=== PATIENT | male | born 1950 ===

== ENCOUNTER 2018-12-05 13:51 | Inpatient (IN) | payer MEDICARE, BC ==
[~2018-12-05] VITALS: Ht 177.8 cm; Wt 70.3 kg
[~2018-12-05 13:51] MED LIST: LANS30EC PO; TUMS200 MG
[2018-12-05 14:15] LABS: Calcium, Ionized (POC) 1.09 mmol/L (1.10-1.46); Chloride (POC) 103 mmol/L (98-108); Creatinine (POC) 0.9 mg/dL (0.8-1.3); Glucose (ISTAT POC) 141 mg/dL (70-99); Hemoglobin (POC) 13.6 g/dL (13.5-17.5); Sodium (POC) 140 mmol/L (135-148); Total CO2 (POC) 23 mmol/L (21-32)
[2018-12-05 14:44] LABS: Hematocrit 41.8 % (37.0-53.0); Hemoglobin 14.3 g/dL (13.5-17.5); Mean Corpuscular HGB 29.8 pg (26.0-34.0); Mean Corpuscular HGB Conc 34.2 g/dL (31.5-36.5); Mean Corpuscular Volume 87 fL (80-100); Mean Platelet Volume 8.8 fL (9.1-12.4); Platelet Count 339 K/mm3 (150-400); RDW Standard Deviation 38.4 fL (35.1-46.3); White Blood Cell Count 9.01 K/mm3 (4.00-11.30)
[2018-12-05 14:57] LABS: International Normalized Ratio 1.05; Prothrombin Time Results 11.1 Sec (9.7-11.5)
[2018-12-05 15:22] LABS: Anion Gap 12 mmol/L (6-16); Blood Urea Nitrogen 18 mg/dL (8-24); Bun/Creatinine Ratio 19.9 (12.0-20.0); CHOL/HDL RATIO 3.8; CO2, Blood 23 mmol/L (21-32); CPK Creatine Kinase 109 U/L (39-308); Calcium, Blood 9.1 mg/dL (8.5-10.1); Chloride, Blood 105 mmol/L (98-108); Cholesterol 208 mg/dL (50-200); Creatine Kinase MB 2.8 ng/mL (0.0-3.6); Creatine Kinase MB Index 2.6 (0.0-4.0); Glomerular Filtration Rate >60 (60-); Glucose, Blood 134 mg/dL (70-99); HDL Cholesterol 55 mg/dL (>39); LDL/HDL RATIO 2.1; Low Density Lipoprotein Chol 117 mg/dL (0-110); Magnesium, Blood 2.2 mg/dL (1.6-2.4); Sodium, Blood 140 mmol/L (136-145); Triglycerides 180 mg/dL (30-160); Troponin I <0.015 ng/mL (0.000-0.040); Very Low Density Lipoprot Chol 36 mg/dL (6-32)
[2018-12-05] MEDS ORDERED: Excedrin Extra1 EACH PO (16:22)
[2018-12-05] MEDS ORDERED: Hair, Skin & N1 EACH PO (16:23)
[2018-12-05] MEDS ORDERED: ASCO500 PO (16:24)
[2018-12-05] MEDS ORDERED: ERGO400 PO (16:24)
--- NOTE | 2018-12-05 16:56 | NUR ---
echocardiogram complete
--- NOTE | 2018-12-05 19:04 | NUR ---
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 BIOX ON INDEX FINGER. AGRASTAT 12 ML/HR. NS 75 ML/HR. DENIED CHEST PAIN. AT BEDSIDE. DAUGHTER, DANETTE AT BEDSIDE. DR. NEW IN. CONSENT TO TRANSFER TO [facility] SIGNED. [facility] CALLED WITH BED ([id number]). REPORT CALLED TO [facility] AT [phone]. [facility] COMING FROM [place] AT 1830. EKG COMPLETED. COREG GIVEN WITH DINNER. PATIENT C/O OF TIGHTNESS OF TR BAND. REMOVED 1 CC AIR. OOZED. PLACED 1 CC BACK. 2X2 TO WICK BLOOD. [employer] CREW ARRIVED. PATIENT TAKEN OUT AT 1857. CALLED [facility] TO NOTIFY OF DEPARTURE. [facility]. ADVISED SHOULD COME THROUGH ER. AND DAUGHTER NOTIFIED.
== END 2018-12-05 18:57 | disposition short-term general hospital (02) | DRG 249 ==
LOC: ER 13:51 → ICUW 14:15
PROVIDERS: Emergency Medicine; ADMIT Emergency Medicine
PROC: 02703EZ Dilation of Coronary Artery, One Artery with Two Intraluminal Devices, Percutaneous Approach (ICD-10-PCS; principal; 2018-12-05)
PROC: B2161ZZ Fluoroscopy of Right and Left Heart using Low Osmolar Contrast (ICD-10-PCS; 2018-12-05)
DX: I21.11 ST elevation (STEMI) myocardial infarction involving right coronary artery (principal); K21.9 Gastro-esophageal reflux disease without esophagitis; E87.6 Hypokalemia; I25.10 Atherosclerotic heart disease of native coronary artery without angina pectoris; M17.12 Unilateral primary osteoarthritis, left knee; M17.11 Unilateral primary osteoarthritis, right knee
CPT/HCPCS: 36415; 71045; 80047; 80048; 80061; 82550; 82553; 83735; 84484; 85014; 85027; 85347; 85610; 85730; 86850; 86900; 86901; 92941; 93005; 93010; 93306; 93454; 96374; 99152; 99153; 99285-25; C1725; C1769; C1876; C1887; C1894; J0461; J1644; J2250; J3010; J3246; J3480; J7030; Q9967

== ENCOUNTER → 2021-09-13 | Outpatient (CLI) | payer MEDICARE, BC ==
[~2021-09-13] MED LIST changes: +ASCO500 PO; +ERGO400 PO; +Excedrin Extra1 EACH PO; +Hair, Skin & N1 EACH PO
== END | disposition home or self-care (01) ==
LOC: LAB 10:55 → LAB SHORT 10:55
DX: H61.001 Unspecified perichondritis of right external ear (principal)
CPT/HCPCS: 88305

== ENCOUNTER → 2023-04-26 | Outpatient (CLI) | payer MEDICARE, BC ==
[2023-04-27 08:19] LABS: Stool Occult Bld Immuno 1 Negative (NEGATIVE)
== END ==
LOC: LAB SHORT 13:43 → LAB 13:43
PROVIDERS: Family Medicine
DX: Z12.11 Encounter for screening for malignant neoplasm of colon (principal)
CPT/HCPCS: G0328

== ENCOUNTER → 2023-09-17 | Outpatient (CLI) | payer MEDICARE, BC | END | disposition home or self-care (01) | LOC: LAB 11:38 → LAB SHORT 11:38 | DX: L57.0 Actinic keratosis (principal); D48.5 Neoplasm of uncertain behavior of skin | CPT/HCPCS: 88305 ==

== ENCOUNTER → 2024-05-12 | Outpatient (CLI) | payer MEDICARE, BC ==
[2024-05-21 12:48] LABS: Stool Occult Bld Immuno 1 Negative (NEGATIVE)
== END | disposition home or self-care (01) ==
LOC: LAB SHORT 16:46 → LAB 16:46
PROVIDERS: Family Medicine
DX: Z12.11 Encounter for screening for malignant neoplasm of colon (principal)
CPT/HCPCS: G0328

== ENCOUNTER 2025-07-11 11:54 | Emergency (ER) | payer MEDICARE, BC ==
[~2025-07-11] VITALS: Ht 177.8 cm; Wt 70.3 kg
[2025-07-11 12:11] LABS: BASOPHILS ABSOLUTE AUTO 0.01 K/mm3 (0.00-0.23); BASOPHILS PERCENT AUTO 0 % (0-2); EOSINOPHILS ABSOLUTE AUTO 0.10 K/mm3 (0.00-0.68); EOSINOPHILS PERCENT AUTO 2 % (0-6); Hematocrit 40.3 % (37.0-53.0); Hemoglobin 13.6 g/dL (13.5-17.5); IMMATURE GRAN ABSOLUTE AUTO 0.02 K/mm3 (0.00-0.10); IMMATURE GRAN PERCENT AUTO 0 % (0-1); LYMPHOCYTES ABSOLUTE AUTO 1.43 K/mm3 (0.84-5.20); LYMPHOCYTES PERCENT AUTO 24 % (21-46); MONOCYTES ABSOLUTE AUTO 0.59 K/mm3 (0.16-1.47); MONOCYTES PERCENT AUTO 10 % (4-13); Mean Corpuscular HGB Conc 33.7 g/dL (31.5-36.5); Mean Corpuscular Volume 90 fL (80-100); NEUTROPHILS ABSOLUTE AUTO 3.71 K/mm3 (1.96-9.15); NEUTROPHILS PERCENT AUTO 63 % (41-73); NRBC ABSOLUTE 0.00 K/mm3 (0.00-0.02); NRBC Auto 0.0 /100 WBC (0.0-0.2); Platelet Count 208 K/mm3 (150-400); RDW Coefficient Variation 12.5 % (11.7-14.2); RDW Standard Deviation 41.0 fL (35.1-46.3)
[2025-07-11] MEDS ORDERED: EZETIMIBE10 M6 PO (12:11)
[2025-07-11] MEDS ORDERED: METOPROLOL SUCC25 MG PO (12:11)
[2025-07-11] MEDS ORDERED: [UNRECOGNIZED DRUG - OTHER] PO (12:11)
[2025-07-11] MEDS ORDERED: TADALAFIL5 M1 PO (12:12)
[2025-07-11] MEDS ORDERED: ASPI81CH PO (12:14)
[2025-07-11] MEDS ORDERED: FERROUS GLUCON324 M7 PO (12:14)
[2025-07-11] MEDS ORDERED: NITR.4SL SL (12:15)
[2025-07-11] MEDS ORDERED: MOME.1TO (12:15)
[2025-07-11 12:38] LABS: Alanine Aminotransfer (ALT/SGP 23.0 U/L (12-78); Albumin, Blood 3.8 g/dL (3.4-5.0); Albumin/Globulin Ratio 1.4 (0.8-1.8); Anion Gap 8.0 mmol/L (3-11); Aspartate Aminotrans (AST/SGOT 17.0 U/L (12-37); Bilirubin, Total 0.6 mg/dL (0.1-1.0); Blood Urea Nitrogen 15.0 mg/dL (8-24); CO2, Blood 29.0 mmol/L (21-32); Calcium, Blood 8.9 mg/dL (8.5-10.1); Chloride, Blood 105.0 mmol/L (98-108); Creatinine, Blood 0.97 mg/dL (0.60-1.20); Globulin, Blood 2.8 g/dL (2.2-4.0); Glucose, Blood 111.0 mg/dL (70-99); Potassium, Blood 4.1 mmol/L (3.5-5.5); Sodium, Blood 138.0 mmol/L (136-145); Total Protein, Blood 6.6 g/dL (6.4-8.2)
[2025-07-11 16:05] VITALS: BP 114/74
== END 2025-07-11 16:09 | disposition home or self-care (01) ==
LOC: ER 11:54
PROVIDERS: Emergency Medicine
DX: R07.89 Other chest pain (principal); K21.9 Gastro-esophageal reflux disease without esophagitis; Z79.899 Other long term (current) drug therapy
CPT/HCPCS: 71046; 80053; 83690; 84484; 85025; 93005; 93010; 99285-25; A9270

== ENCOUNTER 2025-07-19 11:35 | Emergency (ER) | payer MEDICARE, BC ==
[~2025-07-19] VITALS: Ht 177.8 cm; Wt 70.3 kg
[~2025-07-19 11:35] MED LIST changes: +ASPI81CH PO; +Calcium Carbon500 MG PO; +EZETIMIBE10 M6 PO; +FERROUS GLUCON324 M7 PO; +METOPROLOL SUCC25 MG PO; +MOME.1TO TOP; +NITR.4SL SL; +TADALAFIL5 M1 PO; -TUMS200 MG; +[UNRECOGNIZED DRUG - OTHER] PO
[2025-07-19 12:12] LABS: BASOPHILS ABSOLUTE AUTO 0.04 K/mm3 (0.00-0.23); BASOPHILS PERCENT AUTO 1 % (0-2); EOSINOPHILS ABSOLUTE AUTO 0.14 K/mm3 (0.00-0.68); EOSINOPHILS PERCENT AUTO 2 % (0-6); Hematocrit 40.1 % (37.0-53.0); Hemoglobin 13.8 g/dL (13.5-17.5); IMMATURE GRAN ABSOLUTE AUTO 0.01 K/mm3 (0.00-0.10); IMMATURE GRAN PERCENT AUTO 0 % (0-1); LYMPHOCYTES ABSOLUTE AUTO 1.48 K/mm3 (0.84-5.20); LYMPHOCYTES PERCENT AUTO 23 % (21-46); MONOCYTES ABSOLUTE AUTO 0.62 K/mm3 (0.16-1.47); MONOCYTES PERCENT AUTO 10 % (4-13); Mean Corpuscular HGB Conc 34.4 g/dL (31.5-36.5); Mean Corpuscular Volume 87 fL (80-100); NEUTROPHILS ABSOLUTE AUTO 4.17 K/mm3 (1.96-9.15); NEUTROPHILS PERCENT AUTO 65 % (41-73); NRBC ABSOLUTE 0.00 K/mm3 (0.00-0.02); NRBC Auto 0.0 /100 WBC (0.0-0.2); Platelet Count 210 K/mm3 (150-400); RDW Coefficient Variation 12.3 % (11.7-14.2); RDW Standard Deviation 39.1 fL (35.1-46.3)
[2025-07-19 12:38] LABS: Alanine Aminotransfer (ALT/SGP 21.0 U/L (12-78); Albumin, Blood 4.0 g/dL (3.4-5.0); Albumin/Globulin Ratio 1.5 (0.8-1.8); Anion Gap 5.0 mmol/L (3-11); Aspartate Aminotrans (AST/SGOT 15.0 U/L (12-37); Bilirubin, Total 0.5 mg/dL (0.1-1.0); Blood Urea Nitrogen 19.0 mg/dL (8-24); CO2, Blood 30.0 mmol/L (21-32); Calcium, Blood 9.0 mg/dL (8.5-10.1); Chloride, Blood 107.0 mmol/L (98-108); Creatinine, Blood 0.91 mg/dL (0.60-1.20); Globulin, Blood 2.7 g/dL (2.2-4.0); Glucose, Blood 97.0 mg/dL (70-99); Potassium, Blood 4.2 mmol/L (3.5-5.5); Sodium, Blood 138.0 mmol/L (136-145); Total Protein, Blood 6.7 g/dL (6.4-8.2)
[2025-07-19 13:21] VITALS: BP 119/84
[2025-07-20] MEDS ORDERED: PLAVIX75 MG PO ×2 (18:07)
[2025-07-20] MEDS ORDERED: FINA5 PO ×2 (18:09)
== END 2025-07-19 13:18 | disposition home or self-care (01) ==
LOC: ER 11:35
PROVIDERS: Student in an Organized Health Care Education/Training Program
DX: M26.622 Arthralgia of left temporomandibular joint (principal); K21.9 Gastro-esophageal reflux disease without esophagitis; Z87.891 Personal history of nicotine dependence; Z88.0 Allergy status to penicillin; Z79.82 Long term (current) use of aspirin; Z79.899 Other long term (current) drug therapy
CPT/HCPCS: 71046; 80053; 84484; 85025; 93005; 93010; 99284-25

== ENCOUNTER 2025-07-20 11:14 | Observation (INO) | payer MEDICARE, BC ==
[~2025-07-20] VITALS: Ht 177.8 cm; Wt 73.2 kg
[2025-07-20 11:56] LABS: BASOPHILS ABSOLUTE AUTO 0.04 K/mm3 (0.00-0.23); BASOPHILS PERCENT AUTO 1 % (0-2); EOSINOPHILS ABSOLUTE AUTO 0.14 K/mm3 (0.00-0.68); EOSINOPHILS PERCENT AUTO 2 % (0-6); Hematocrit 42.5 % (37.0-53.0); Hemoglobin 14.4 g/dL (13.5-17.5); IMMATURE GRAN ABSOLUTE AUTO 0.01 K/mm3 (0.00-0.10); IMMATURE GRAN PERCENT AUTO 0 % (0-1); LYMPHOCYTES ABSOLUTE AUTO 1.21 K/mm3 (0.84-5.20); LYMPHOCYTES PERCENT AUTO 21 % (21-46); MONOCYTES ABSOLUTE AUTO 0.69 K/mm3 (0.16-1.47); MONOCYTES PERCENT AUTO 12 % (4-13); Mean Corpuscular HGB Conc 33.9 g/dL (31.5-36.5); Mean Corpuscular Volume 89 fL (80-100); NEUTROPHILS ABSOLUTE AUTO 3.64 K/mm3 (1.96-9.15); NEUTROPHILS PERCENT AUTO 64 % (41-73); NRBC ABSOLUTE 0.00 K/mm3 (0.00-0.02); NRBC Auto 0.0 /100 WBC (0.0-0.2); Platelet Count 221 K/mm3 (150-400); RDW Coefficient Variation 12.3 % (11.7-14.2); RDW Standard Deviation 39.8 fL (35.1-46.3)
[2025-07-20 12:11] LABS: Alanine Aminotransfer (ALT/SGP 23.0 U/L (12-78); Albumin, Blood 3.9 g/dL (3.4-5.0); Albumin/Globulin Ratio 1.1 (0.8-1.8); Anion Gap 7.0 mmol/L (3-11); Aspartate Aminotrans (AST/SGOT 20.0 U/L (12-37); Bilirubin, Total 0.5 mg/dL (0.1-1.0); Blood Urea Nitrogen 18.0 mg/dL (8-24); CO2, Blood 28.0 mmol/L (21-32); Calcium, Blood 9.0 mg/dL (8.5-10.1); Chloride, Blood 106.0 mmol/L (98-108); Creatinine, Blood 0.9 mg/dL (0.60-1.20); Globulin, Blood 3.4 g/dL (2.2-4.0); Glucose, Blood 95.0 mg/dL (70-99); Potassium, Blood 4.5 mmol/L (3.5-5.5); Sodium, Blood 136.0 mmol/L (136-145); Total Protein, Blood 7.3 g/dL (6.4-8.2)
[2025-07-20] MEDS ORDERED: FLU VACC TS2025(65UP)/MF59C/PF 45 MCG/0.5 ML SYRINGE IM SCH (13:40)
[2025-07-20] MEDS ORDERED: NS 1,000 ML IV SCH (13:40)
[2025-07-20] MEDS ORDERED: Midazolam HCl 1MG / ML 2ML Vial ONE (15:54)
[2025-07-20] MEDS ORDERED: FentaNYL Citrate 50 MCG/ML 2 ML Injection ONE (15:54)
[2025-07-20] MEDS ORDERED: Heparin Sodium 1000 Units/ML 10ML MDV ONE (15:55)
[2025-07-20] MEDS ORDERED: NS 1,000 ML IV ONE ×2 (15:55)
[2025-07-20] MEDS ORDERED: Verapamil HCL 2.5 MG/ML 2ML Injection ONE (15:55)
[2025-07-20] MEDS ORDERED: Nitroglycerin 2 MG/20 ML BTL ONE (15:56)
[2025-07-20] MEDS ORDERED: NS 250 ML IV ONE (15:56)
--- NOTE | 2025-07-20 16:18 | NUR ---
REPORT: PT IS PENDING ADMISSION TO PCU FROM ER, RECEIVED REPORT FROM HENOK ESPINO IN ER. 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
[2025-07-20 17:03] VITALS: BP 127/67
[2025-07-20 17:17] VITALS: BP 119/72
[2025-07-20 17:30] VITALS: BP 121/63
[2025-07-20 17:45] VITALS: BP 118/62
[2025-07-20 18:00] VITALS: BP 115/69
[2025-07-20] MEDS ORDERED: PLAVIX75 MG PO ×2 (18:07)
[2025-07-20] MEDS ORDERED: FINA5 PO ×2 (18:09)
--- NOTE | 2025-07-20 18:43 | NUR ---
ADMISSION/SHIFT SUMMARY: PT ARRIVES FROM [facility] APPROX 1700. PT IS A&Ox4, ANSWERS QUESTIONS APPROPRIATELY AND IS COOPERATIVE W/CARE. PT DENIES SOB, O2 SATS >93% ON RA. PT DENIES CP SINCE ARRIVAL TO UNIT, SB/SR ON MONITOR, RATE 50s-60s. L RADIAL ACCESS W/TR BAND IN PLACE, VS MONITORING IN PLACE, TR BAND DEFLATION HAS BEEN INITIATED, SITE IS WN. PT TOLERATES DINNER, IS ABLE TO AMBULATE TO RESTROOM. PT HAS BEEN ORIENTED TO UNIT, CALL LIGHT IN REACH.
[2025-07-20 23:38] VITALS: BP 107/65
[2025-07-21 04:45] VITALS: BP 126/67
--- NOTE | 2025-07-21 06:09 | NUR ---
SHIFT SUMMARY PT IS A&O X4, ABLE TO MAKE NEEDS KNOWN, MOVING ALL EXTREMITIES WITH PURPOSE, OBEYS COMMANDS, REPOSITIONING SELF IN BED, SBA FOR CORDMANAGMENT, CALLS APPROPRIATELY, EDUCATED TO NOT PUT PRESSURE OR MOVE LEFT WRIST/ ARM BORED IN PLACE. CONTINUOUS SPO2, SPO2 GREATER THAN 92% ON RA, NO SIGNS OF RESPIRATORY DISTRESS NOTED. CONTINUOUS TELE MONITORING, SINUS 50-60 S, BP STABLE WITH MAP GREATER THAN 65, PULSES PRESENT T/O, DENIES CHEST P/P T/O THIS SHIFT, S/P ANGIOGRAM 07/20/25, ANGIO SITE SOFT AND WITHOUT SIGNS OF HEMATOMA-TRANSPARENT DRESSING IN PLACE. BOWEL TONES PRESENT IN ALL 4Q, PT DENIES FEELINGS OF NAUSEA OR CONSTIPATION. VOIDING IND, URINE YELLOW IN COLOR. PT CALLED @ APPROX 0530 AND WAS GIVEN AN UPDATE ON NIGHT EVENTS BY THIS RN BED LOWEST POSITION, CALL LIGHT IN REACH, AWAITING TO GIVE REPORT TO ONCOMING RN.
[2025-07-21 08:32] VITALS: BP 135/81
[2025-07-21 12:28] VITALS: BP 123/102
[2025-07-21 15:11] VITALS: BP 125/77
--- NOTE | 2025-07-21 15:43 | NUR ---
SHIFT SUMMARY PT IS A/OX4, ABLE TO MOVE ALL EXREMITIS SPONTANEOUSLY, AND CALLS APPROPRIATELY. PT DENIES PAIN/NUMBESS/TINGLING T/O. SATURATING >95 ON RA, BREATHS EVEN/UNLABORED, AND LUNG SOUNDS CLEAR T/O WYMAN. NSR TO SB ON MONITOR, MAP'S >65, NO EDEMA NOTED, AND CAP REFILL<3 SEC. BOWEL SOUNDS PRESENT T/O QUADRANTS, ABD SOFT/NONTENDER, PT TOLERATING MEALS WELL. PT CONTINENT O BOWEL AND BLADDER. SKIN INTACT AND W/O BREAKDOWN. PT IS ABLE TO AMBULATE INDEPENDENTLY W/ MINIMAL ASSISTANCE FOR CORD MANAGEMENT. ACCESS: [facility] HOSPITALIST AND CARIOLOGY AT BEDSIDE TO DISCUSS DISCHARGE READINESS. DISCHARGE ORDER PLACED AND PACKET REVIEWED W/ PATIENT. PT EXPRESSED UNDERSTANDING TO ALL INFORMATION GIVEN. PT ESCORTED TO POV VIA AMBULATION W/ ALL PERSONAL POSESSIONS AND PAPERWORK IN HAND.
== END 2025-07-21 16:05 | disposition home or self-care (01) ==
LOC: ER 11:14 → PCU 11:15
PROVIDERS: Student in an Organized Health Care Education/Training Program; ADMIT Internal Medicine
DX: I25.110 Atherosclerotic heart disease of native coronary artery with unstable angina pectoris (principal); K21.9 Gastro-esophageal reflux disease without esophagitis; E78.00 Pure hypercholesterolemia, unspecified; I10 Essential (primary) hypertension; Z87.891 Personal history of nicotine dependence; Z88.0 Allergy status to penicillin; Z79.899 Other long term (current) drug therapy
CPT/HCPCS: 71045; 76937; 80053; 83880; 84484; 85025; 93005; 93010; 93455; 99285-25; C1769; C1894; G0378; J1644; J2250; J3010; J7030; J7050; Q9967

== ENCOUNTER 2025-08-14 08:33 | Emergency (ER) | payer MEDICARE, BC ==
[~2025-08-14] VITALS: Ht 177.8 cm; Wt 69.4 kg
[~2025-08-14 08:33] MED LIST changes: +FINA5 PO; +PLAVIX75 MG PO
[2025-08-14] MEDS ORDERED: Ondansetron HCl 2 MG / ML 2ML Vial IV ONE (09:15)
[2025-08-14 09:22] LABS: BASOPHILS ABSOLUTE AUTO 0.02 K/mm3 (0.00-0.23); BASOPHILS PERCENT AUTO 0 % (0-2); EOSINOPHILS ABSOLUTE AUTO 0.09 K/mm3 (0.00-0.68); EOSINOPHILS PERCENT AUTO 2 % (0-6); Hematocrit 38.7 % (37.0-53.0); Hemoglobin 13.3 g/dL (13.5-17.5); IMMATURE GRAN ABSOLUTE AUTO 0.01 K/mm3 (0.00-0.10); IMMATURE GRAN PERCENT AUTO 0 % (0-1); LYMPHOCYTES ABSOLUTE AUTO 1.09 K/mm3 (0.84-5.20); LYMPHOCYTES PERCENT AUTO 20 % (21-46); MONOCYTES ABSOLUTE AUTO 0.46 K/mm3 (0.16-1.47); MONOCYTES PERCENT AUTO 9 % (4-13); Mean Corpuscular HGB Conc 34.4 g/dL (31.5-36.5); Mean Corpuscular Volume 86 fL (80-100); NEUTROPHILS ABSOLUTE AUTO 3.69 K/mm3 (1.96-9.15); NEUTROPHILS PERCENT AUTO 69 % (41-73); NRBC ABSOLUTE 0.00 K/mm3 (0.00-0.02); NRBC Auto 0.0 /100 WBC (0.0-0.2); Platelet Count 205 K/mm3 (150-400); RDW Coefficient Variation 12.2 % (11.7-14.2); RDW Standard Deviation 38.7 fL (35.1-46.3)
[2025-08-14 09:37] LABS: Alanine Aminotransfer (ALT/SGP 21.0 U/L (12-78); Albumin, Blood 3.6 g/dL (3.4-5.0); Albumin/Globulin Ratio 1.3 (0.8-1.8); Anion Gap 10.0 mmol/L (3-11); Aspartate Aminotrans (AST/SGOT 18.0 U/L (12-37); Bilirubin, Total 0.6 mg/dL (0.1-1.0); Blood Urea Nitrogen 19.0 mg/dL (8-24); CO2, Blood 24.0 mmol/L (21-32); Calcium, Blood 8.8 mg/dL (8.5-10.1); Chloride, Blood 107.0 mmol/L (98-108); Creatinine, Blood 0.9 mg/dL (0.60-1.20); Globulin, Blood 2.8 g/dL (2.2-4.0); Glucose, Blood 126.0 mg/dL (70-99); Potassium, Blood 4.1 mmol/L (3.5-5.5); Sodium, Blood 137.0 mmol/L (136-145); Total Protein, Blood 6.4 g/dL (6.4-8.2)
[2025-08-14 11:59] VITALS: BP 109/61
== END 2025-08-14 11:59 | disposition home or self-care (01) ==
LOC: ER 08:33
PROVIDERS: Student in an Organized Health Care Education/Training Program
DX: R42 Dizziness and giddiness (principal); K21.9 Gastro-esophageal reflux disease without esophagitis; E78.00 Pure hypercholesterolemia, unspecified; Z87.891 Personal history of nicotine dependence; Z79.82 Long term (current) use of aspirin; Z79.899 Other long term (current) drug therapy; Z88.0 Allergy status to penicillin; Z88.8 Allergy status to other drugs, medicaments and biological substances
CPT/HCPCS: 80053; 84484; 85025; 96374; 99285-25; A9270; J2405